=== PATIENT | female | born 2005 | race Caucasian/White ===

== ENCOUNTER 2025-06-09 16:36 | Inpatient (IN) ==
--- NOTE | 2025-06-09 19:59 | Emergency Department Note ---
Impression & Plan Abdominal pain, Acute upper back pain, Elevated LFTs, Thrombocytopenia, Leukocytosis ED Provider Note CHIEF COMPLAINT: Abdominal pain HISTORY OF PRESENTING ILLNESS: This 19-year-old female patient presents to the emergency department for evaluation of abdominal pain. The patient started with lower back pain a week ago, but now the pain is in the upper abdomen radiating to the middle of her back. The symptoms have been getting getting progressively worse over the past 2-3 days. She states that the upper back pain is worse when she is taking a deep breath. She has nausea, but no vomiting. She has had a low-grade fever for the past couple of days as well, but no other cough or URI symptoms. She has had some darker urine recently. Denies constipation or diarrhea. No previous abdominal problems or surgeries. She last ate and drank at 1 pm - [employer] sandwich with water. REVIEW OF SYSTEMS: See HPI for pertinent positives and pertinent negatives. ALLERGIES: NKDA MEDICATIONS: None PAST MEDICAL HISTORY: Denies pertinent past medical or pertinent past surgical history PHYSICAL EXAM: VITALS: Vitals are noted on the nurse's note and reviewed by myself. GENERAL: Non toxic, in no acute distress, non-diaphoretic. SKIN: Capillary refill <2 sec. EYES: PERRLA. EOMI. Conjunctivae without injection, sclerae without icterus. NOSE: Patent without discharge. MOUTH: Mucous membranes moist. Uvula midline. Airway patent. NECK: Supple without nuchal rigidity. HEART: Regular rate and rhythm without murmurs gallops or rubs. LUNGS: Clear to auscultation bilaterally without wheezes, rales or rhonchi. No retractions or accessory muscle use. ABDOMEN: Positive bowel sounds x 4. Normal tympanic percussion. Soft, epigastric and right upper quadrant abdominal tenderness to palpation on exam. The patient also has some pain with palpation of the middle of her back. No masses or hepatosplenomegaly. Glynn sign negative. No CVA tenderness. No guarding, rigidity, or rebound tenderness. No focal RLQ or LLQ tenderness. MUSCULOSKELETAL: No gross musculoskeletal defects. NEURO: Patient was alert and oriented. No focal neurological deficits. DIFFERENTIAL DIAGNOSIS: Differential diagnosis includes MO, PE, myocarditis, endocarditis, hepatitis, pancreatitis, cholecystitis, cholelithiasis, appendicitis, kidney stone, pyelonephritis, UTI, gastritis, gastroenteritis, mesenteric adenitis, obstruction, constipation, hernia, abdominal abscess, perforation, diverticulitis, IBD, ischemic colitis, abdominal aortic aneurysm, , ectopic , ovarian cyst, ovarian torsion, acute salpingitis, or others. ED COURSE AND MEDICAL DECISION MAKING: HISTORY FROM INDEPENDENT HISTORIAN: I spoke with the patient's mother via phone at the patient's request. MEDICATIONS GIVEN: 1 L normal saline solution bolus. Zofran 4 mg IV. Zosyn 4.5 g IV. The patient declined the Tylenol and Pepcid that was ordered. MONITOR: Continuous car retarder operator: Order was placed for continuous car retarder operator. Patient was placed on the car retarder operator and continuous pulse ox. Patient was noted to be in normal sinus rhythm at an initial rate of 90 bpm per my interpretation. INTERPRETATION OF LABS: I interpreted the labs with full lab results as below in the lab section of this note. Laboratory results pertinent to the emergent complaint are discussed in the MDM section below. The patient was advised to follow up with their PCP and/or specialist(s) for further outpatient monitoring and management of any abnormal results. INTERPRETATION OF IMAGING: Imaging studies were interpreted by myself and read by radiology as per the imaging section of this note. The patient was advised to follow up with their PCP and/or specialist(s) for further outpatient management of any non-emergent abnormal findings. KUB showed no evidence of obstruction or other acute abnormalities. CTA of the chest with IV contrast was negative for PE, pneumonia, or other acute cardiopulmonary etiology. CT scan of the abdomen and pelvis with IV contrast was positive for acute cholecystitis and splenomegaly. Gallbladder ultrasound showed hepatosplenomegaly. It also showed gallbladder wall thickening measuring 5 mm with no cholelithiasis. Findings may represent acute cholecystitis. Common bile duct is within normal limits. Right renal cyst. CONSULTATIONS: Joni Aleman PA-C of general surgery. On-call hospitalist. MDM SUMMARY: The patient was seen during a time of extreme volume and extreme acuity. Nursing triage protocols were initiated and conducted by protocol in the triage area. The patient was examined by myself once they were taken back to an exam room. Protocol orders for blood work, urinalysis, and KUB were ordered in protocol. However, the patient declined interventions other than KUB until she could be evaluated by a provider. The patient's KUB was negative for acute abnormalities. The patient has been having some lower back pain for the past week with development of epigastric and right upper quadrant abdominal pain that radiates to the middle of her back for the past couple of days. She also has increased pain when she takes a deep breath. She states that her symptoms have been getting progressively worse. KUB showed no evidence of obstruction or other acute abnormalities. After discussion with the patient and the patient's mother, the patient and her mother were agreeable to blood work and urine testing. The patient did not want an IV placed, but rather a straight stick for blood work. The patient was ordered oral Tylenol and oral Pepcid, but she declined this. The patient's white blood cell count came back elevated at 10.83. Hemoglobin normal at 14.4. Platelet count low at 118. Her ANC was also low at 0.97. Total bilirubin elevated at 1.8, AST 562, ALT 594, and alk phos 194. CMP otherwise normal. Lipase normal. Monospot negative. High-sensitivity troponin normal. Urinalysis normal. Urine test negative. D-dimer elevated at 2760. After the results of the abnormal labs, the patient and her mother were agreeable to IV placement as well as additional imaging studies for further evaluation. The patient was given 1 L normal saline solution bolus and Zofran 4 mg IV. She declined any medication for pain while in the emergency department. CTA of the chest with IV contrast was negative for PE, pneumonia, or other acute cardiopulmonary etiology. CT scan of the abdomen and pelvis with IV contrast was positive for acute cholecystitis and splenomegaly. Gallbladder ultrasound showed hepatosplenomegaly. It also showed gallbladder wall thickening measuring 5 mm with no cholelithiasis. Findings may represent acute cholecystitis. Common bile duct is within normal limits. Right renal cyst. I again spoke with the patient's mother in regards to the imaging findings. I stated that the patient would be evaluated by surgery and additional recommendations would be made at that time. The patient was given Zosyn 4.5 g IV. I spoke with Joni Aleman PA-C of general surgery who stated that he would come down to the ER to evaluate the patient, but would recommend admission to medicine for further workup of the elevated LFTs and possible MRCP. Please refer to his dictation for further details. I spoke with the on-call hospitalist who agreed to admit the patient for further evaluation and treatment. Please refer to their dictation for further details. The patient's care was transferred in stable condition. DIAGNOSIS: Abdominal pain with concerns for cholecystitis on imaging studies Upper back pain with elevated D-dimer, but negative CTA of the chest Elevated LFTs Leukocytosis with thrombocytopenia and ANC of 0.97. Past Med/Surg History Problem List (Updated 06/10/25 @ 01:42 by Inna Jules PA-C) Leukocytosis (Acute) Thrombocytopenia (Acute) Elevated LFTs (Acute) Acute upper back pain (Acute) Abdominal pain (Acute) Social History Smoking Status: Never smoker Preferred Language: Belarusian Feels Safe at Home: Yes Allergies Allergies Allergy/AdvReac Type Severity Reaction Status Date / Time No Known Allergies Allergy Verified 06/09/25 20:13 Home Meds Home Medications Medication Instructions Recorded Confirmed acetaminophen 500 mg tablet 1,000 mg PO Q6H PRN Pain 06/09/25 06/09/25 ibuprofen 200 mg tablet 400 mg PO BID PRN Fever 06/09/25 06/09/25 Results & Data (ED) Vital Signs Vital Signs - 24 hr 06/09/25 17:09 06/09/25 20:53 06/09/25 20:53 Temperature 36.9 C Temperature Source Temporal Artery Scan Pulse Rate 91 H Pulse Rate [Apical] 76 Pulse Rhythm [Apical] Regular Pulse Strength [Apical] Normal Respiratory Rate 18 18 Respiratory Effort / Characteristics Non-Labored Non-Labored Spontaneous Respiratory Depth Normal Normal Blood Pressure 133/91 Blood Pressure [Right Arm] 122/78 Blood Pressure Mean 105 Blood Pressure Mean [Right Arm] 92 Pulse Oximetry 96 100 99 Oxygen Delivery Method Room Air Room Air Room Air Sepsis Recent Fever Within 48 Hours Yes Sepsis New/Unexplained Change in Mental Status No Sepsis Action Taken by Nursing No Action Required 06/09/25 23:12 Temperature Temperature Source Pulse Rate Pulse Rate [Apical] 89 Pulse Rhythm [Apical] Regular Pulse Strength [Apical] Normal Respiratory Rate 18 Respiratory Effort / Characteristics Non-Labored Spontaneous Respiratory Depth Normal Blood Pressure Blood Pressure [Right Arm] 126/91 Blood Pressure Mean Blood Pressure Mean [Right Arm] 102 Pulse Oximetry 100 Oxygen Delivery Method Room Air Sepsis Recent Fever Within 48 Hours Sepsis New/Unexplained Change in Mental Status Sepsis Action Taken by Nursing Laboratory Data 06/09/25 20:47 06/09/25 20:47 Lab Results 06/09/25 Range/Units 20:47 WBC 10.83 H (4.8-10.8) K/ul RBC 4.71 (4.20-5.40) M/uL Hgb 14.4 (12.0-16.0) g/dl Hct 39.5 (37.0-47.0) % MCV 83.9 (80.0-100.0) fL MCH 30.6 (25.0-34.0) pg MCHC 36.5 H (32.0-36.0) g/dL RDW Std Deviation 36.7 (36.4-46.3) fL RDW Coeff of Maria Teresa 11.9 (11.5-14.5) % Plt Count 118 L (130-400) K/uL MPV 12.1 (9.4-12.4) fL Neutrophils % (Manual) 9 % Lymphocytes % (Manual) 6 % Reactive Lymphs % (Man) 84 % Monocytes % (Manual) 1 % Neutrophils # (Manual) 0.97 L (1.40-6.50) K/uL Total Absolute Neuts 0.97 L* (1.4-6.5) K/uL Lymphocytes # (Manual) 0.65 L (1.2-3.4) K/uL Reactive Lymphs # 9.10 K/uL Total Abs Lymphocytes 9.75 H (1.2-3.4) K/uL Monocytes # (Manual) 0.11 (0.11-0.59) K/uL RBC Morphology Unremarkable D-Dimer 2760 H* (0-500) ug/L FEU Sodium 136 (136-145) mmol/L Potassium 3.8 (3.5-5.1) mmol/L Chloride 103 (98-107) mmol/L Carbon Dioxide 25 (21-32) mmol/L Anion Gap 8 (3-11) BUN 10 (6-23) mg/dl Creatinine 0.63 (0.6-1.2) mg/dl Est Cr Clr Drug Dosing 96.3 ml/min eGFR 129.35 BUN/Creatinine Ratio 15.9 (10-20) Glucose 83 (70-99(Fasting)) mg/dl Calcium 9.4 (8.6-10.3) mg/dl Total Bilirubin 1.8 H (0.2-1.0) mg/dl AST 562 H (13-39) U/L ALT 594 H (7-52) U/L Alkaline Phosphatase 194 H (34-104) U/L Troponin I High Sens 6.7 (0-14) pg/ml Total Protein 6.8 (6.0-8.3) gm/dl Albumin 4.0 (3.4-5.0) gm/dl Globulin 2.8 (2.5-4.0) gm/dl Albumin/Globulin Ratio 1.4 (0.9-2) Lipase 13 (11-82) U/L Urine Color Yellow Urine Appearance Clear (Clear) Urine pH 7.0 (4.5-7.5) Ur Specific [place] 1.006 (1.000-1.030) Urine Protein Negative (Negative) Urine Glucose (UA) Negative (Negative) Urine Ketones Negative (Negative) Urine Blood Negative (Negative) Urine Nitrite Negative (Negative) Urine Bilirubin Negative (Negative) Urine Urobilinogen Negative (Negative) Ur Leukocyte Esterase Negative (Negative) Urine Test Negative (Negative) Urine Comment Monoscreen Negative (Negative) Administered Medications Discontinued Medications Acetaminophen (Acetaminophen 500 Mg Tab) 1,000 mg PO NOW STA Stop: 06/09/25 20:25 Last Admin: 06/09/25 20:56 Dose: Not Given Documented By: Jennifer Famotidine (Famotidine 20 Mg Tab) 20 mg PO NOW ONE Stop: 06/09/25 20:25 Last Admin: 06/09/25 20:56 Dose: Not Given Documented By: [facility] Sodium Chloride (Nss) 1,000 mls @ 999 mls/hr IV .Q1H1M ONE Stop: 06/09/25 22:34 Last Infusion: 06/09/25 23:07 Dose: Infused Documented By: [facility] Admin: 06/09/25 21:50 Dose: 999 mls/hr Documented By: [facility] Ioversol (Optiray 320 125ml) 115 ml IV ONCE ONE Stop: 06/09/25 21:55 Last Admin: 06/09/25 21:54 Dose: 115 ml Documented By: LEA Ondansetron HCl (Ondansetron Inj 2 Mg/Ml 2 Ml Vial) 4 mg IV NOW STA Stop: 06/09/25 21:35 Last Admin: 06/09/25 21:50 Dose: 4 mg Documented By: [facility] Imaging Data Radiologist's Impression: KUB X-Ray 06/09/25 16:57 Single frontal view of the abdomen and pelvis No comparison Impression Nonobstructive bowel gas pattern. Electronically signed by Mathew Reina 06-09-2025 8:29 PM Abdomen/Pelvis CT 06/09/25 21:34 Exam(s): CT ABDOMEN + PELVIS With Contrast IV Amt: 115 ML OPTIRAY 320 EXAM: CT Abdomen and Pelvis With Intravenous Contrast CLINICAL HISTORY: Reason for exam: Upper abd pain into upper and lower back, elev LFT. TECHNIQUE: Axial computed tomography images of the abdomen and pelvis with intravenous contrast. Automated exposure control was utilized for the study. A dose lowering technique was utilized adhering to the principles of ALARA. CONTRAST: Patient received 115 ML OPTIRAY 320 of IV contrast COMPARISON: No relevant prior studies available. FINDINGS: Lung bases: Unremarkable. No mass. No consolidation. ABDOMEN: Liver: Unremarkable. No mass. Gallbladder and bile ducts: Gallbladder wall thickening and pericholecystic fluid consistent with acute cholecystitis. No ductal dilation. Pancreas: Unremarkable. No mass. No ductal dilation. Spleen: Borderline splenomegaly measuring 13 cm. Adrenals: Unremarkable. No mass. Kidneys and ureters: Unremarkable. No solid mass. No hydronephrosis. Stomach and bowel: Unremarkable. No obstruction. No mucosal thickening. PELVIS: Appendix: No findings to suggest acute appendicitis. Bladder: Unremarkable. No mass. Reproductive: Bilateral ovarian cysts versus follicles measuring up to 1 cm bilaterally. ABDOMEN and PELVIS: Intraperitoneal space: Trace free fluid within the dependent pelvis may be secondary to above-mentioned inflammatory process. No free air. Bones/joints: No acute fracture. No dislocation. Soft tissues: Unremarkable. Vasculature: Unremarkable. No abdominal aortic aneurysm. Lymph nodes: Unremarkable. No enlarged lymph nodes. IMPRESSION: Acute cholecystitis Splenomegaly Electronically signed by: Mathew Reina MD 06/09/25 23:38 PM Chest CTA 06/09/25 21:34 Exam(s): CTA CHEST IV Amt: 115 ML OPTIRAY 320 EXAM: CT Angiography Chest With Intravenous Contrast CLINICAL HISTORY: Reason for exam: PE. TECHNIQUE: Axial computed tomographic angiography images of the chest with intravenous contrast. Automated exposure control was utilized for the study. A dose lowering technique was utilized adhering to the principles of ALARA. MIP reconstructed images were created and reviewed. COMPARISON: No relevant prior studies available. FINDINGS: Pulmonary arteries: Unremarkable. No pulmonary embolism. Aorta: No acute findings. No thoracic aortic aneurysm. Lungs: Unremarkable. No mass. No consolidation. Pleural space: Unremarkable. No significant effusion. No pneumothorax. Heart: Unremarkable. No cardiomegaly. No significant pericardial effusion. No evidence of RV dysfunction. Bones/joints: No acute fracture. No dislocation. Soft tissues: Unremarkable. Lymph nodes: Unremarkable. No enlarged lymph nodes. IMPRESSION: Normal chest CTA. No pulmonary embolism. Electronically signed by: Mathew Reina MD 06/09/25 23:39 PM Gallbladder Ultrasound 06/09/25 21:34 Exam(s): US GALLBLADDER EXAM: US Abdomen Limited, Gallbladder CLINICAL HISTORY: Reason for exam: Epigastric and RUQ pain, elev LFTs. TECHNIQUE: Real-time ultrasound of the right upper quadrant with image documentation. COMPARISON: No relevant prior studies available. FINDINGS: Liver: Periportal lymphadenopathy with benign fatty amilcar. These measure up to 2 cm in long axis diameter. Hepatomegaly. Gallbladder: Gallbladder wall thickening measuring 0.5. No gallstones. Common bile duct: Common bile duct is within normal measuring 0.2. No stones. Pancreas: Unremarkable as visualized. Right kidney: Simple 0.9 cm right renal cysts. No follow-up of these simple cysts is necessary. Right kidney measures 9.6 cm. Spleen: Splenomegaly. IMPRESSION: Hepatosplenomegaly Gallbladder wall thickening measuring 5 mm. No cholelithiasis. Findings may represent acute cholecystitis in the appropriate clinical setting. Right renal cysts Electronically signed by: Mathew Reina MD 06/09/25 23:43 PM Discharge Plan Visit Data Chief Complaint: Abdominal Pain Stated Complaint: UPPER ABD PAIN 3 DAYS, DISCOMFORT, FEVER (PASSED) ED Provider: Flash Bailey ED Midlevel Provider: Inna Jules Discharge Problem: Abdominal pain, Acute upper back pain, Elevated LFTs, Thrombocytopenia, Leukocytosis Patient Disposition: Admitted As Inpatient Condition: Fair Discharge Instructions Interventions: ED Discharge Assessment Last Done: 06/10/25 01:23 Discharge Problem: Abdominal pain Qualifiers: Abdominal location: upper abdomen, unspecified Qualified Code(s): R10.10 - Upper abdominal pain, unspecified
--- NOTE | 2025-06-09 20:30 | XRay Report ---
Single frontal view of the abdomen and pelvis No comparison Impression Nonobstructive bowel gas pattern. Electronically signed by Mathew Reina 06-09-2025 8:29 PM
[2025-06-09] MEDS: FAMOTIDINE 20 MG TAB PO ONE (20:56)
[2025-06-09] MEDS: ACETAMINOPHEN 500 MG TAB PO STA (20:56)
[2025-06-09 20:57] LABS: Appearance Urine Clear (Clear); Glucose Urine UA Negative (Negative)
[2025-06-09 21:22] LABS: Albumin Globulin Ratio 1.4 (0.9-2); Alkaline Phosphatase 194.0 U/L (34-104); Anion Gap 8.0 (3-11); Bilirubin,Total 1.8 mg/dl (0.2-1.0); Blood Urea Nitrogen 10.0 mg/dl (6-23); Calcium 9.4 mg/dl (8.6-10.3); Carbon Dioxide 25.0 mmol/L (21-32); Chloride 103.0 mmol/L (98-107); Creatinine Clr Calc Pharmacy 96.3 ml/min; Globulin 2.8 gm/dl (2.5-4.0); Glucose 83.0 mg/dl (70-99(Fasting)); Lipase 13.0 U/L (11-82); Potassium 3.8 mmol/L (3.5-5.1); Sodium 136.0 mmol/L (136-145); Total Protein 6.8 gm/dl (6.0-8.3)
[2025-06-09 21:39] LABS: Hematocrit (blood only) 39.5 % (37.0-47.0); Hemoglobin 14.4 g/dl (12.0-16.0); Mean Corpuscular Hemoglobin 30.6 pg (25.0-34.0); Mean Corpuscular Volume 83.9 fL (80.0-100.0); Platelet Count 118 K/uL (130-400); RDW Standard Deviation 36.7 fL (36.4-46.3); Red Blood Count 4.71 M/uL (4.20-5.40); White Blood Count 10.83 K/ul (4.8-10.8)
[2025-06-09 21:42] LABS: Alanine Aminotransferase 594.0 U/L (7-52)
[2025-06-09] MEDS: SODIUM CHLORIDE 0.9% 1,000 ML IV ONE (21:50)
[2025-06-09] MEDS: ONDANSETRON INJ 2 MG/ML 2 ML VIAL IV STA (21:50)
[2025-06-09] MEDS: OPTIRAY 320 125ml IV ONE (21:54)
[2025-06-09 22:41] LABS: ALC (manual) 9.75 K/uL (1.2-3.4); ANC (manual) 0.97 K/uL (1.4-6.5); RBC Morphology Unremarkable; Reactive Lymphocytes # (manual) 9.10 K/uL; Reactive Lymphocytes % (manual) 84 %
--- NOTE | 2025-06-09 23:39 | CT Scan Report ---
Exam(s): CT ABDOMEN + PELVIS With Contrast IV Amt: 115 ML OPTIRAY 320 EXAM: CT Abdomen and Pelvis With Intravenous Contrast CLINICAL HISTORY: Reason for exam: Upper abd pain into upper and lower back, elev LFT. TECHNIQUE: Axial computed tomography images of the abdomen and pelvis with intravenous contrast. Automated exposure control was utilized for the study. A dose lowering technique was utilized adhering to the principles of ALARA. CONTRAST: Patient received 115 ML OPTIRAY 320 of IV contrast COMPARISON: No relevant prior studies available. FINDINGS: Lung bases: Unremarkable. No mass. No consolidation. ABDOMEN: Liver: Unremarkable. No mass. Gallbladder and bile ducts: Gallbladder wall thickening and pericholecystic fluid consistent with acute cholecystitis. No ductal dilation. Pancreas: Unremarkable. No mass. No ductal dilation. Spleen: Borderline splenomegaly measuring 13 cm. Adrenals: Unremarkable. No mass. Kidneys and ureters: Unremarkable. No solid mass. No hydronephrosis. Stomach and bowel: Unremarkable. No obstruction. No mucosal thickening. PELVIS: Appendix: No findings to suggest acute appendicitis. Bladder: Unremarkable. No mass. Reproductive: Bilateral ovarian cysts versus follicles measuring up to 1 cm bilaterally. ABDOMEN and PELVIS: Intraperitoneal space: Trace free fluid within the dependent pelvis may be secondary to above-mentioned inflammatory process. No free air. Bones/joints: No acute fracture. No dislocation. Soft tissues: Unremarkable. Vasculature: Unremarkable. No abdominal aortic aneurysm. Lymph nodes: Unremarkable. No enlarged lymph nodes. IMPRESSION: Acute cholecystitis Splenomegaly Electronically signed by: Mathew Reina MD 06/09/25 23:38 PM
--- NOTE | 2025-06-09 23:40 | CT Scan Report ---
Exam(s): CTA CHEST IV Amt: 115 ML OPTIRAY 320 EXAM: CT Angiography Chest With Intravenous Contrast CLINICAL HISTORY: Reason for exam: PE. TECHNIQUE: Axial computed tomographic angiography images of the chest with intravenous contrast. Automated exposure control was utilized for the study. A dose lowering technique was utilized adhering to the principles of ALARA. MIP reconstructed images were created and reviewed. COMPARISON: No relevant prior studies available. FINDINGS: Pulmonary arteries: Unremarkable. No pulmonary embolism. Aorta: No acute findings. No thoracic aortic aneurysm. Lungs: Unremarkable. No mass. No consolidation. Pleural space: Unremarkable. No significant effusion. No pneumothorax. Heart: Unremarkable. No cardiomegaly. No significant pericardial effusion. No evidence of RV dysfunction. Bones/joints: No acute fracture. No dislocation. Soft tissues: Unremarkable. Lymph nodes: Unremarkable. No enlarged lymph nodes. IMPRESSION: Normal chest CTA. No pulmonary embolism. Electronically signed by: Mathew Reina MD 06/09/25 23:39 PM
--- NOTE | 2025-06-09 23:44 | Ultrasound Report ---
Exam(s): US GALLBLADDER EXAM: US Abdomen Limited, Gallbladder CLINICAL HISTORY: Reason for exam: Epigastric and RUQ pain, elev LFTs. TECHNIQUE: Real-time ultrasound of the right upper quadrant with image documentation. COMPARISON: No relevant prior studies available. FINDINGS: Liver: Periportal lymphadenopathy with benign fatty amilcar. These measure up to 2 cm in long axis diameter. Hepatomegaly. Gallbladder: Gallbladder wall thickening measuring 0.5. No gallstones. Common bile duct: Common bile duct is within normal measuring 0.2. No stones. Pancreas: Unremarkable as visualized. Right kidney: Simple 0.9 cm right renal cysts. No follow-up of these simple cysts is necessary. Right kidney measures 9.6 cm. Spleen: Splenomegaly. IMPRESSION: Hepatosplenomegaly Gallbladder wall thickening measuring 5 mm. No cholelithiasis. Findings may represent acute cholecystitis in the appropriate clinical setting. Right renal cysts Electronically signed by: aMthew Reina MD 06/09/25 23:43 PM
--- NOTE | 2025-06-10 01:00 | History & Physical Report ---
Date of Service June 10, 2025 Assessment & Plan (1) Abdominal pain: (2) Elevated LFTs: (3) Thrombocytopenia: (4) Leukocytosis: Plan 19yo female presenting with mid-abdominal and RUQ pain progressive x 3 days with nausea and non-bloody vomiting. Abdominal pain was preceded by 4 days of fever. Patient presently afebrile, HD stable and non-toxic in appearance. #Abdominal pain/Elevated LFTs - patient predominantly with mid-abdominal pain and some RUQ pain and reports a pulling sensation in her LUQ. Imaging as above suggestive of acute cholecystitis and splenomegaly. No gallstones present. Common bile duct WNL. Patient's LFTs with mixed pattern, hepatocellular and obstructive (GNH=514, LWU=712, Tbili=1.8 and VY=150). Patient with leukocytosis with WBC=10.83 but has neutropenia and lymphopenia Suspect viral infection, possibly acute EBV or CMV vs acute hepatitis. -Admit to medical -Check acute hepatitis panel, EBV panel and CMV IgG and IgM -Check Acetaminophen level -Will keep NPO for now -LR at 100mL/hr x 1L ordered -Toradol PRN pain -Zofran PRN nausea -Continue Zosyn for now -General Surgery consultation appreciated -If worsening obstructive pattern on labs in AM would obtain MRCP #Thrombocytopenia - possibly secondary to acute viral infection -Hepatitis, acute EBV and CMV as above -Repeat CBC in AM Ppx - Low risk for DVT Code - Full Dispo - Admit to medical History of Present Illness Chief Complaint: abdominal pain Primary Care Provider: [facility] Arvind Maxwell is a 19yo female with no significant past medical or surgical history presenting with abdominal discomfort. Patient is a [employer] student. She lives in an apartment with roommates. No direct sick contacts but has been around people coughing in class, etc. Patient reports having 4 days of fever last week up to 101 - last fever was 06/08midday. Three days ago she developed upper abdominal pain. Pain is constant, dull in nature and is located in the mid-abdomen with radiation through to the back. Pain has been intensifying over the last three days. Also with pain in the RUQ and a stretching/pulling sensation in the LUQ. Pain is worse with deep breathing. Today she developed nausea with non-bloody vomiting. She reports dark colored urine as well as orange colored stools. She has been taking Ibuprofen and Tylenol at home with pain management. In the ER she is afebrile, HD stable, NAD ER Course: NSS x 1L Zofran 4mg IV Zosyn 4.5gm IV Allergies Allergy/AdvReac Type Severity Reaction Status Date / Time No Known Allergies Allergy Verified 06/09/25 20:13 Home Medications Medication Instructions Recorded Confirmed Type acetaminophen 500 mg tablet 1,000 mg PO Q6H PRN Pain 06/09/25 06/09/25 History ibuprofen 200 mg tablet 400 mg PO BID PRN Fever 06/09/25 06/09/25 History Past Med/Surg History Problem List (Updated 06/10/25 @ 02:46 by Akilah Barry DO) Leukocytosis (Acute) Thrombocytopenia (Acute) Elevated LFTs (Acute) Acute upper back pain (Acute) Abdominal pain (Acute) Medical History (Updated 06/10/25 @ 02:46 by Akilah Barry DO) Sickle cell trait Family History (Updated 06/10/25 @ 02:46 by Akilah Barry DO) Other Cancer Diabetes Social History Smoking Status: Never smoker Hx Alcohol Use: No Hx Substance Use: No Preferred Language: Tajik Communication Ability: Effective Underlay Stitcher Required: No Beliefs That Will Affect Care: None Current Living Situation: Family Other Information That Helps Us Care for You: No Feels Safe at Home: Yes Safety Concerns: Feels Safe At This Time Assistive Devices: None Review of Systems Review of Systems: All systems reviewed & are unremarkable except as noted in HPI & below Physical Exam Physical Exam: General: patient resting comfortably, NAD, non-toxic in appearance, AA&O x 4 Skin: warm, dry, intact, no rashes or lesions HEENT: NC/AT, PERRL, EOMI, anicteric sclera, conjunctiva without injection, external ear normal to inspection and nontender, nares patent, moist mucus membranes, dentition intact, no oropharyngeal lesions, neck supple, trachea midline, tender, mobile LAD noted right anterior cervical chain and submandibular, no thyromegaly, no JVD Heart: +S1/S2, regular, no m/r/g Lungs: equal air entry bilaterally, no rales/rhonchi/wheezes Abd: +BS, soft, pain with palpation of the mid-abdomen, no rebound/guarding/peritonitis, some mild RUQ pain with no rebound/guarding Ext: warm, 2+ pulses in UE/LE bilaterally, no clubbing/cyanosis or edema Neuro: nonfocal, patient AA&O x 4, speech intact, no facial droop, moving all extremities on command with equal strength 5/5 Results & Data Results & Data Vital Signs (Past 12 Hours) Vital Signs Temp Pulse Pulse Resp BP BP Pulse Ox 06/09/25 23:12 89 18 126/91 100 06/09/25 20:53 76 18 122/78 99 06/09/25 20:53 100 06/09/25 17:09 36.9 C 91 H 18 133/91 96 O2 Del Method 06/09/25 23:12 Room Air 06/09/25 20:53 Room Air 06/09/25 20:53 Room Air 06/09/25 17:09 Room Air Laboratory Results Laboratory Results WBC 10.83 K/ul (4.8-10.8) H 06/09/25 20:47 RBC 4.71 M/uL (4.20-5.40) 06/09/25 20:47 Hgb 14.4 g/dl (12.0-16.0) 06/09/25 20:47 Hct 39.5 % (37.0-47.0) 06/09/25 20:47 MCV 83.9 fL (80.0-100.0) 06/09/25 20:47 MCH 30.6 pg (25.0-34.0) 06/09/25 20:47 MCHC 36.5 g/dL (32.0-36.0) H 06/09/25 20:47 RDW Std Deviation 36.7 fL (36.4-46.3) 06/09/25 20:47 RDW Coeff of Maria Teresa 11.9 % (11.5-14.5) 06/09/25 20:47 Plt Count 118 K/uL (130-400) L 06/09/25 20:47 MPV 12.1 fL (9.4-12.4) 06/09/25 20:47 Neutrophils % (Manual) 9 % 06/09/25 20:47 Lymphocytes % (Manual) 6 % 06/09/25 20:47 Reactive Lymphs % (Man) 84 % 06/09/25 20:47 Monocytes % (Manual) 1 % 06/09/25 20:47 Neutrophils # (Manual) 0.97 K/uL (1.40-6.50) L 06/09/25 20:47 Total Absolute Neuts 0.97 K/uL (1.4-6.5) L* 06/09/25 20:47 Lymphocytes # (Manual) 0.65 K/uL (1.2-3.4) L 06/09/25 20:47 Reactive Lymphs # 9.10 K/uL 06/09/25 20:47 Total Abs Lymphocytes 9.75 K/uL (1.2-3.4) H 06/09/25 20:47 Monocytes # (Manual) 0.11 K/uL (0.11-0.59) 06/09/25 20:47 RBC Morphology Unremarkable 06/09/25 20:47 D-Dimer 2760 ug/L FEU (0-500) H* 06/09/25 20:47 Sodium 136 mmol/L (136-145) 06/09/25 20:47 Potassium 3.8 mmol/L (3.5-5.1) 06/09/25 20:47 Chloride 103 mmol/L (98-107) 06/09/25 20:47 Carbon Dioxide 25 mmol/L (21-32) 06/09/25 20:47 Anion Gap 8 (3-11) 06/09/25 20:47 BUN 10 mg/dl (6-23) 06/09/25 20:47 Creatinine 0.63 mg/dl (0.6-1.2) 06/09/25 20:47 Est Cr Clr Drug Dosing 96.3 ml/min 06/09/25 20:47 eGFR 129.35 06/09/25 20:47 BUN/Creatinine Ratio 15.9 (10-20) 06/09/25 20:47 Glucose 83 mg/dl (70-99(Fasting)) 06/09/25 20:47 Calcium 9.4 mg/dl (8.6-10.3) 06/09/25 20:47 Total Bilirubin 1.8 mg/dl (0.2-1.0) H 06/09/25 20:47 AST 562 U/L (13-39) H 06/09/25 20:47 ALT 594 U/L (7-52) H 06/09/25 20:47 Alkaline Phosphatase 194 U/L (34-104) H 06/09/25 20:47 Troponin I High Sens 6.7 pg/ml (0-14) 06/09/25 20:47 Total Protein 6.8 gm/dl (6.0-8.3) 06/09/25 20:47 Albumin 4.0 gm/dl (3.4-5.0) 06/09/25 20:47 Globulin 2.8 gm/dl (2.5-4.0) 06/09/25 20:47 Albumin/Globulin Ratio 1.4 (0.9-2) 06/09/25 20:47 Lipase 13 U/L (11-82) 06/09/25 20:47 Urine Color Yellow 06/09/25 20:47 Urine Appearance Clear (Clear) 06/09/25 20:47 Urine pH 7.0 (4.5-7.5) 06/09/25 20:47 Ur Specific Couch 1.006 (1.000-1.030) 06/09/25 20:47 Urine Protein Negative (Negative) 06/09/25 20:47 Urine Glucose (UA) Negative (Negative) 06/09/25 20:47 Urine Ketones Negative (Negative) 06/09/25 20:47 Urine Blood Negative (Negative) 06/09/25 20:47 Urine Nitrite Negative (Negative) 06/09/25 20:47 Urine Bilirubin Negative (Negative) 06/09/25 20:47 Urine Urobilinogen Negative (Negative) 06/09/25 20:47 Ur Leukocyte Esterase Negative (Negative) 06/09/25 20:47 Urine Test Negative (Negative) 06/09/25 20:47 Urine Comment 06/09/25 20:47 Monoscreen Negative (Negative) 06/09/25 20:47 Impressions KUB X-Ray 06/09/25 16:57 Single frontal view of the abdomen and pelvis No comparison Impression Nonobstructive bowel gas pattern. Electronically signed by Mathew Reina 06-09-2025 8:29 PM Abdomen/Pelvis CT 06/09/25 21:34 Exam(s): CT ABDOMEN + PELVIS With Contrast IV Amt: 115 ML OPTIRAY 320 EXAM: CT Abdomen and Pelvis With Intravenous Contrast CLINICAL HISTORY: Reason for exam: Upper abd pain into upper and lower back, elev LFT. TECHNIQUE: Axial computed tomography images of the abdomen and pelvis with intravenous contrast. Automated exposure control was utilized for the study. A dose lowering technique was utilized adhering to the principles of ALARA. CONTRAST: Patient received 115 ML OPTIRAY 320 of IV contrast COMPARISON: No relevant prior studies available. FINDINGS: Lung bases: Unremarkable. No mass. No consolidation. ABDOMEN: Liver: Unremarkable. No mass. Gallbladder and bile ducts: Gallbladder wall thickening and pericholecystic fluid consistent with acute cholecystitis. No ductal dilation. Pancreas: Unremarkable. No mass. No ductal dilation. Spleen: Borderline splenomegaly measuring 13 cm. Adrenals: Unremarkable. No mass. Kidneys and ureters: Unremarkable. No solid mass. No hydronephrosis. Stomach and bowel: Unremarkable. No obstruction. No mucosal thickening. PELVIS: Appendix: No findings to suggest acute appendicitis. Bladder: Unremarkable. No mass. Reproductive: Bilateral ovarian cysts versus follicles measuring up to 1 cm bilaterally. ABDOMEN and PELVIS: Intraperitoneal space: Trace free fluid within the dependent pelvis may be secondary to above-mentioned inflammatory process. No free air. Bones/joints: No acute fracture. No dislocation. Soft tissues: Unremarkable. Vasculature: Unremarkable. No abdominal aortic aneurysm. Lymph nodes: Unremarkable. No enlarged lymph nodes. IMPRESSION: Acute cholecystitis Splenomegaly Electronically signed by: Mathew Reina MD 06/09/25 23:38 PM Chest CTA 06/09/25 21:34 Exam(s): CTA CHEST IV Amt: 115 ML OPTIRAY 320 EXAM: CT Angiography Chest With Intravenous Contrast CLINICAL HISTORY: Reason for exam: PE. TECHNIQUE: Axial computed tomographic angiography images of the chest with intravenous contrast. Automated exposure control was utilized for the study. A dose lowering technique was utilized adhering to the principles of ALARA. MIP reconstructed images were created and reviewed. COMPARISON: No relevant prior studies available. FINDINGS: Pulmonary arteries: Unremarkable. No pulmonary embolism. Aorta: No acute findings. No thoracic aortic aneurysm. Lungs: Unremarkable. No mass. No consolidation. Pleural space: Unremarkable. No significant effusion. No pneumothorax. Heart: Unremarkable. No cardiomegaly. No significant pericardial effusion. No evidence of RV dysfunction. Bones/joints: No acute fracture. No dislocation. Soft tissues: Unremarkable. Lymph nodes: Unremarkable. No enlarged lymph nodes. IMPRESSION: Normal chest CTA. No pulmonary embolism. Electronically signed by: Mathew Reina MD 06/09/25 23:39 PM Gallbladder Ultrasound 06/09/25 21:34 Exam(s): US GALLBLADDER EXAM: US Abdomen Limited, Gallbladder CLINICAL HISTORY: Reason for exam: Epigastric and RUQ pain, elev LFTs. TECHNIQUE: Real-time ultrasound of the right upper quadrant with image documentation. COMPARISON: No relevant prior studies available. FINDINGS: Liver: Periportal lymphadenopathy with benign fatty amilcar. These measure up to 2 cm in long axis diameter. Hepatomegaly. Gallbladder: Gallbladder wall thickening measuring 0.5. No gallstones. Common bile duct: Common bile duct is within normal measuring 0.2. No stones. Pancreas: Unremarkable as visualized. Right kidney: Simple 0.9 cm right renal cysts. No follow-up of these simple cysts is necessary. Right kidney measures 9.6 cm. Spleen: Splenomegaly. IMPRESSION: Hepatosplenomegaly Gallbladder wall thickening measuring 5 mm. No cholelithiasis. Findings may represent acute cholecystitis in the appropriate clinical setting. Right renal cysts Electronically signed by: Mathew Reina MD 06/09/25 23:43 PM Code Status & VTE Plan VTE Prophylaxis Plan VTE Prophylaxis will be ordered: No Reason for no VTE drug order: Treatment not indicated PG Care Time/CCT Total # of Minutes Spent Total Time Spent with Patient: Total time spent is greater than 50% in coordination of care (as documented) at patient's floor/unit and/or counseling patient: Coding Level of Care Code 21357 INT INP/OBS CARE 3/75MIN Diagnoses Abdominal pain R10.10 Abdominal location: upper abdomen, unspecified Elevated LFTs R79.89 Thrombocytopenia D69.6 Leukocytosis D72.829 (1) Abdominal pain Abdominal location: upper abdomen, unspecified Qualified Code(s): R10.10 - Upper abdominal pain, unspecified
--- NOTE | 2025-06-10 01:10 | Surgery Consultation ---
Date of Consultation June 10, 2025 Assessment & Plan (1) Abdominal pain: I discussed with the treating emergency physician and the patient is being admitted on the hospitalist service. I also discussed directly with the hospitalist service with surgical input/recommendations as follows: Although the interpreting radiologist raise the concern for cholecystitis on previous imaging modalities, the patient does not have any evidence of gallstones which would make cholecystitis unusual in the setting In addition, the patient's physical exam was not consistent with acute cholecystitis during my interview with her I did discuss with the hospitalist service and there is concern that the patient's elevated LFTs and imaging findings may represent some viral etiology and they are currently evaluating the patient for this They are placing the patient empirically on antibiotics Would recommend keeping the patient n.p.o. Would recommend hydrating with IV fluids Would recommend repeating laboratories in the morning If patient is noted to have worsening of her LFTs on her morning labs con sideration be given to performing an MRCP for further evaluation of her biliary system Additional recommendations will be forthcoming based on her clinical course as it unfolds Supervising Physician Co-Signing Physician Notes Patient seen and examined, labs and imaging reviewed, agree with above. 19-year-old female with abdominal pain and nausea, imaging suggested possible cholecystitis. No postprandial pain, mild diffuse abdominal discomfort but no specific right upper quadrant pain. On exam she is afebrile with stable vitals. Her abdomen is soft, mildly tender to palpation in upper abdomen and right upper quadrant, no guarding or rebound, negative Glynn sign. Labs show a leukocytosis but mostly lymphocytosis. EBV positive. LFTs elevated. Ultrasound and CT scan personally viewed and interpreted, and agree with the assessment of mildly thickened in the gallbladder wall with some Navid cholecystic fluid. HIDA scan negative. Given lymphocytosis, elevated LFTs, and negative HIDA scan, this unlikely represents an acalculous cholecystitis which would be very unusual in a person of this age. This is likely a viral illness related to her Maureen-Paul virus. No surgical indication at this time. Further management workup per medicine. Surgery will sign off, call with questions or concerns. History of Present Illness History of Present Illness Abdominal pain that began approximate 3 days ago. She notes that the abdominal pain is located primarily in her upper abdomen without radiation or modifying factors. She had 1 episode of nausea and vomiting earlier today and reports occasional chills. She also notes that she has had approximately 4 days of febrile episodes but she could not quantify the amount. Patient notes that over the past several weeks to months she has not had any postprandial abdominal pain. She notes that no close contacts are sick with similar symptoms. This is a 19-year-old female who presented to the emergency department secondary to since arrival to the hospital the patient has had labs and imaging which I independent reviewed. KUB showed nonobstructive bowel gas pattern. A CT scan of the abdomen pelvis was performed. This showed the patient had gallbladder wall thickening and Navid cholecystic fluid concerning for acute cholecystitis. There is no biliary ductal dilatation noted. There is no free intraperitoneal air. A CT scan of the chest showed no evidence of pulmonary embolism. A gallbladder ultrasound was also performed that showed no biliary ductal dilatation. There is no evidence of Aislinn lithiasis. The gallbladder wall was measured at 5 mm/interpreting radiologist could not exclude acute cholecystitis. CBC revealed white blood cell count was elevated 10.8. Hemoglobin and hematocrit were noted to be normal. Platelet count was 118,000. Chemistry profile showed sodium and potassium as well as the BUN and creatinine were normal. Patient was noted to have elevated LFTs with a total bilirubin of 1.8, AST of 562, ALT of 594, and alkaline phosphatase of 194. Her lipase was not elevated and the urinalysis was not indicative of infection. Regarding past medical history the patient denies any medical problems. Concerning past surgical history she denies any prior surgeries Concerning social history she does not smoke but does drink alcohol socially. At the time of my interview she was resting comfortably in bed and she was in no distress Allergies Allergy/AdvReac Type Severity Reaction Status Date / Time No Known Allergies Allergy Verified 06/09/25 20:13 Home Medications Medication Instructions Recorded Confirmed Type acetaminophen 500 mg tablet 1,000 mg PO Q6H PRN Pain 06/09/25 06/09/25 History ibuprofen 200 mg tablet 400 mg PO BID PRN Fever 06/09/25 06/09/25 History Patient History Medical History (Updated 06/10/25 @ 02:46 by Akilah Barry DO) Sickle cell trait Family History (Updated 06/10/25 @ 02:47 by Akilah Barry DO) Other Cancer Diabetes Social History Smoking Status: Never smoker Hx Alcohol Use: No Hx Substance Use: No Preferred Language: Niuean Communication Ability: Effective Ride Operator Required: No Beliefs That Will Affect Care: None Current Living Situation: Family Other Information That Helps Us Care for You: No Feels Safe at Home: Yes Safety Concerns: Feels Safe At This Time Assistive Devices: None Review of Systems Review of Systems: All systems reviewed & are unremarkable except as noted in HPI & below Physical Exam Constitutional: WD/WN, vitals as above Eyes: + anicteric sclerae ENMT: Ears: no hearing impairment and no external ear abnormality Mouth: no oropharynx abnormality Neck: trachea midline Respiratory: normal respiratory effort; no respiratory distress and no labored breathing Cardiovascular: Rate/Rhythm: regular rate and regular rhythm Gastrointestinal (Abdomen): At the time of my exam the patient was noted to have a soft, nonrigid abdomen. There is no rebound tenderness, guarding, or rigidity. There are no signs of peritonitis. During my exam there is minimal to no pain exhibited with palpation of the epigastric or right upper quadrants. Musculoskeletal: No calf tenderness Skin: no jaundice Neurologic: moves all extremities Psychiatric: A+Ox3, euthymic affect Results & Data Vital Signs (Past 12 Hours) Vital Signs Temp Pulse Pulse Resp BP BP Pulse Ox 06/09/25 23:12 89 18 126/91 100 06/09/25 20:53 76 18 122/78 99 06/09/25 20:53 100 06/09/25 17:09 36.9 C 91 H 18 133/91 96 O2 Del Method 06/09/25 23:12 Room Air 06/09/25 20:53 Room Air 06/09/25 20:53 Room Air 06/09/25 17:09 Room Air PG Care Time/CCT Total # of Minutes Spent Total Time Spent with Patient: Total time spent is greater than 50% in coordination of care (as documented) at patient's floor/unit and/or counseling patient: Coding Level of Care Code 46789 IN/OBS CONSULT LVL 5,80M Diagnoses Abdominal pain R10.9
[2025-06-10] MEDS ORDERED: KETOROLAC TROMETHAMINE 15 MG/ML VIAL IV PRN (01:22)
[2025-06-10] MEDS: PIPERACILLIN/TAZOBACTAM 4.5 GM/100 ML BAG IV ONE ×2 (01:38→01:44)
[2025-06-10] MEDS: LACTATED RINGER'S 1,000 ML IV SCH (04:00)
[2025-06-10 05:03] LABS: Hematocrit (blood only) 38.0 % (37.0-47.0); Hemoglobin 13.2 g/dl (12.0-16.0); Mean Corpuscular Hemoglobin 29.3 pg (25.0-34.0); Mean Corpuscular Volume 84.3 fL (80.0-100.0); Platelet Count 119 K/uL (130-400); RDW Standard Deviation 37.4 fL (36.4-46.3); Red Blood Count 4.51 M/uL (4.20-5.40); White Blood Count 13.20 K/ul (4.8-10.8)
[2025-06-10 05:17] LABS: Anion Gap 9.0 (3-11); Blood Urea Nitrogen 6.0 mg/dl (6-23); Calcium 8.7 mg/dl (8.6-10.3); Carbon Dioxide 23.0 mmol/L (21-32); Chloride 105.0 mmol/L (98-107); Creatinine Clr Calc Pharmacy 88.0 ml/min; Glucose 72.0 mg/dl (70-99(Fasting)); Potassium 4.1 mmol/L (3.5-5.1); Sodium 137.0 mmol/L (136-145)
[2025-06-10 05:24] LABS: INR 1.2 (0.9-1.1); Prothrombin Time 12.4 Seconds (9.0-12.0)
[2025-06-10 05:34] LABS: Alanine Aminotransferase 566.0 U/L (7-52); Alkaline Phosphatase 187.0 U/L (34-104); Bilirubin,Total 2.0 mg/dl (0.2-1.0); Total Protein 6.3 gm/dl (6.0-8.3)
[2025-06-10] MEDS: PIPERACILLIN/TAZOBACTAM 4.5 GM/100 ML BAG IV SCH (05:36)
[2025-06-10 06:37] LABS: EBV Nuclear Antigen IgG Ab Negative; EBV Nuclear Antigen IgG Quant < 3.0 U/mL (< 18.0)
[2025-06-10 06:39] LABS: EBV Early Antigen IgG Ab Negative (Negative); EBV Early Antigen IgG Quant < 5.0 U/mL (< 9.0); EBV IgM Quant > 160.0 U/mL (< 36.0)
[2025-06-10 06:40] LABS: EBV IgG Quant 11.3 U/mL (< 18.0)
[2025-06-10 06:43] LABS: Hep B Surface Ag with confirm Negative (Negative)
[2025-06-10 06:48] LABS: Hep C Ab Rflx HepCQuant RNA Negative (Negative)
--- NOTE | 2025-06-10 10:13 | Nuclear Medicine Report ---
NUCLEAR HEPATOBILIARY SCAN CLINICAL HISTORY: Right upper quadrant abdominal pain. Elevated hepatic transaminases. COMPARISON STUDY: Abdominal CT and ultrasound dated 06/09/2025. TECHNIQUE: Dynamic images of the liver and anterior abdomen were obtained every 5 minutes for a total of 60 minutes following the IV administration of 4.6 mCi of technetium 99m Mebrofenin. FINDINGS: The hepatobiliary scan shows prompt and homogeneous hepatic uptake. There is visualized act ivity within the intra and extrahepatic biliary tree at 10 minutes, and within the gallbladder at 10 minutes. There is normal biliary to bowel transit, with small bowel visualized by 35 minutes. IMPRESSION: There is no scintigraphic evidence of cholecystitis. ACT 112: Negative or not required by law. Electronically signed by: Nathan Thapa M.D. 06/10/2025 10:12 AM
[2025-06-10] MEDS: ONDANSETRON INJ 2 MG/ML 2 ML VIAL IV PRN (10:34)
[2025-06-10 12:37] VITALS: BP 104/72; RESP 18
[2025-06-10 15:53] VITALS: PULSE 87; TEMP 97.9; O2SAT 96
--- NOTE | 2025-06-10 16:24 | Discharge Summary ---
Discharge Summary Date of Service June 10, 2025 Principal Dx & Hospital Course #1 = Principal Diagnosis (1) Abdominal pain: (2) Elevated LFTs: (3) Thrombocytopenia: (4) Leukocytosis: Plan 19yo female presenting with mid-abdominal and RUQ pain progressive x 3 days with nausea and non-bloody vomiting. Abdominal pain was preceded by 4 days of fever. Patient presently afebrile, HD stable and non-toxic in appearance. #Abdominal pain/Elevated LFTs - EBV CTAP: acute choley, splenomegaly KUB negative Chest CTA: normal, negative for PE GB US: hepatosplenomegaly. GB wall thickening measuring 5mm. No cholelithiasis. Findings may represent acute choley HIDA negative. Viral panel ordered --> + for Maureen Paul virus CBC w/ WBC of 13.20, plt 119, INR 1.2. LFTs: TB 2.0, DB 1.2, AST/ALT 458/566, AP 187 Recommend supportive care w/ Zofran prn for N/V. Follow up outpatient for recheck of labs. Able to eat a regular diet prior to d/c w/o vomiting. Tylenol prn for pain or fever upon discharge. General surgery consulted - recommendations included the viral panel as imaging was not consistent with acute choley. s/p IV Zosyn #Thrombocytopenia secondary to acute viral infection Trend outpatient Updated patient's mother via phone 06/10. Discharged to home 06/10. Admission HPI Per Admitting Provider Arvind Maxwell is a 19yo female with no significant past medical or surgical history presenting with abdominal discomfort. Patient is a [employer] student. She lives in an apartment with roommates. No direct sick contacts but has been around people coughing in class, etc. Patient reports having 4 days of fever last week up to 101 - last fever was 06/08midday. Three days ago she developed upper abdominal pain. Pain is constant, dull in nature and is located in the mid-abdomen with radiation through to the back. Pain has been intensifying over the last three days. Also with pain in the RUQ and a stretching/pulling sensation in the LUQ. Pain is worse with deep breathing. Today she developed nausea with non-bloody vomiting. She reports dark colored urine as well as orange colored stools. She has been taking Ibuprofen and Tylenol at home with pain management. In the ER she is afebrile, HD stable, NAD ER Course: NSS x 1L Zofran 4mg IV Zosyn 4.5gm IV Discharge Exam Constitutional WD/WN, vitals as above Eyes PERRL, conjunctivae normal, anicteric sclerae Respiratory normal respiratory effort Skin no rashes, warm and dry Neurologic PERRL, EOMI, accommodation nl, no face palsy, no dysarthria Psychiatric A+Ox3, euthymic affect Discharge Plan Discharge Items Patient Disposition: Home - Self-Care Reason For Visit: ABDOMINAL PAIN, ACUTE CHOLECYSTITIS Discharge Diagnosis: Maureen Paul Virus Condition on Discharge: Fair Activity: Resume your previous activity Non-emergency contact: Primary Care Provider Call non-emergency contact if: you have any medication questions, your symptoms worsen and you have a fever Follow-up/Referrals: [facility] [Primary Care Provider] - Diet: Regular Addtl Attending Provider Instructions: Ms. Maxwell, You were recently hospitalized secondary to nausea, fever, and abdominal pain. You tested positive for the Maureen-Paul Virus. This was the cause of your abnormal liver function. This virus is treated by supportive care and your lab values will eventually normalize. Upon discharge: Please use Zofran every 6 hours as needed for nausea or vomiting. Please follow up with the [facility] for continued care including repeat lab work in 1-2 weeks (Labs include CBC, CMP, and PT/INR). The remainder of your outpatient medications may be resumed. Best of luck! Julianne Rosales PA-C Pending Studies at Discharge: Yes Studies:: CMV serologies Stand-Alone Forms: My [facility] Relive, Smoking Cessation Medications and DC Order Prescriptions: New ondansetron 4 mg tablet,disintegrating 4 mg PO Q6H PRN (Reason: nausea and vomiting) Qty: 30 0RF Continued acetaminophen 500 mg Tablet 1,000 mg PO Q6H PRN (Reason: Pain) ibuprofen 200 mg Tablet 400 mg PO BID PRN (Reason: Fever) Discharge Orders: Discharge Order (Routine); Ordered 06/10/25 Ordered By: Julianne Rosales Admission Data Admit Date/Time: 06/10/25 00:59 Attending Provider: Celestino Blanca Admit Provider: Akilah Barry Primary Care Provider: [facility] Other Providers: Jhonny,Akilah M Hospital Stay Data Consultations 06/10/25 00:15 ED Decision to Admit Stat Diagnostic Imagining Performed 06/09/25 21:34 CT abd pelvis IV con only Stat CT angio chest PE protocol Stat US gallbladder Stat Pending Results Patient Have Any Pending Studies at Discharge: Yes Discharge Instructions Given to Patient (Per Discharging Provider) Ms. Maxwell, You were recently hospitalized secondary to nausea, fever, and abdominal pain. You tested positive for the Maureen-Paul Virus. This was the cause of your abnormal liver function. This virus is treated by supportive care and your lab values will eventually normalize. Upon discharge: Please use Zofran every 6 hours as needed for nausea or vomiting. Please follow up with the [facility] for continued care including repeat lab work in 1-2 weeks (Labs include CBC, CMP, and PT/INR). The remainder of your outpatient medications may be resumed. Best of luck! Julianne Rosales PA-C Supervising Physician Co-Signing Physician Notes The patient was not seen by me. The chart was reviewed. Case discussed with CHARLES Keyes. Agree with assessment and plan Total Time Total Time Spent Total Time Spent (In Minutes): 50 Total Time Includes: Examination of the Patient, Discharge Planning, Medication Reconciliation and Other Coding Level of Care Code 36104 INP/OBS DISCH >30 MIN Diagnoses Abdominal pain R10.10 Abdominal location: upper abdomen, unspecified Elevated LFTs R79.89 Thrombocytopenia D69.6 Leukocytosis D72.829
[2025-06-11 12:47] LABS: Hepatitis A Antibody IgM NON-REACTIVE (NON-REACTIVE); Hepatitis B Core Antibody IgM NON-REACTIVE (NON-REACTIVE)
== END 2025-06-10 17:43 | disposition home or self-care (01) | DRG 866 ==
LOC: ED 16:36 → SUATTDRO 06-10 00:59 → EDINP 06-10 00:59 → 3W 06-10 01:23